=== PATIENT | female | born 1940 | race Caucasian/White ===

== ENCOUNTER 2017-10-26 20:19 | Observation (INO) | payer MEDICARE ==
[~2017-10-26] VITALS: Ht 162.6 cm; Wt 57.5 kg
[~2017-10-26 20:19] MED LIST: CLOBETASOL0.053 EX; FLEXERIL OR; NAPROSYN500 MG PO; SYNTHROID88 MCG PO
--- NOTE | 2017-10-26 20:34 | NUR ---
PT AMBULATED TO ER ROOM 13 WITH DAUGHTER. CHANGED INTO GOWN.
--- NOTE | 2017-10-26 20:36 | NUR ---
pt arrived in room. no obvious distress noted. Wearing mask. Family with patient
--- NOTE | 2017-10-26 20:50 | NUR ---
awaiting provider for evaluation.
[2017-10-26 21:45] LABS: HEMATOCRIT 35.9 % (37.0-47.0); IMMATURE GRANULOCYTES 0.7 % (0.0-1.0); MEAN CELL VOLUME 93.7 fL CALC (80.0-100.0); MEAN CORPUSCULAR HGB 31.3 pG CALC (26.0-32.0); MEAN CORPUSCULAR HGB CONC 33.4 g/L CALC (32.0-36.0); NEUT# 10.52 thou/uL (2.00-7.15); RED BLOOD COUNT 3.83 mill/uL (4.20-5.60); RED CELL DISTRI WIDTH 12.5 % (11.5-15.5)
[2017-10-26 21:57] LABS: ALBUMIN 4.4 g/dL (3.2-5.0); ALKALINE PHOSPHATASE 89 u/l (38-126); ANION GAP 16 (6-22 (CALC)); BILIRUBIN, TOTAL 0.3 mg/dL (0.0-1.4); BUN 12 mg/dL (8-23); BUN/CREATININE RATIO 15 (12-20 (CALC)); CARBON DIOXIDE 28 mmol/l (22-30); CHLORIDE 95 mmol/l (95-108); CREATININE 0.8 mg/dL (0.5-1.0); GFR > 60 ML/MIN (>=60 (CALC)); GFR FOR AFR.AMER. > 60 ML/MIN (>=60 (CALC)); POTASSIUM 4.5 mmol/l (3.5-5.1); SGOT/AST 29 u/l (9-36); SGPT/ALT 29 u/l (11-66); SODIUM 133 mmol/l (137-146); TOTAL PROTEIN 7.9 g/dL (6.3-8.2)
[2017-10-26 21:59] LABS: INFLUENZA A NONE DETECTED (NONE DETECT); INFLUENZA B NONE DETECTED (NONE DETECT)
[2017-10-26 22:35] LABS: TSH, 3RD GENERATION 5.86 uIU/mL (0.47 - 4.68)
--- NOTE | 2017-10-26 23:56 | NUR ---
Pt resting comfortably at this time. Daughter is leaving. Awaiting room assignment.
[2017-10-27 00:30] VITALS: BP 125/71
--- NOTE | 2017-10-27 00:30 | NUR ---
PATIENT ARRIVED TO THE FLOOR IN STABLE CONDITION VIA STRETCHER AND ACCOMPANIED BY ED NURSE. PATIENT SETTLED TO BED AND ORIENTED TO ROOM CALL SYSTEM. PATIENT IS ALERT AND ORIENTED. BED IN LOW POSITION AND CALL LIGHT IN REACH.
[2017-10-27 01:55] LABS: URINE BILIRUBIN - DIPSTICK NEGATIVE (NEGATIVE); URINE BLOOD DIPSTICK NEGATIVE (NEGATIVE); URINE CLARITY SL CLOUDY; URINE COLOR YELLOW; URINE GLUCOSE - DIPSTICK NEGATIVE (NEGATIVE); URINE KETONE NEGATIVE (NEGATIVE); URINE LEUK ESTERASE NEGATIVE (NEGATIVE); URINE NITRITE - DIPSTICK NEGATIVE (Negative); URINE PROTEIN - DIPSTICK NEGATIVE (NEG-TRACE); URINE UROBILINOGEN - DIPSTICK 0.2 E.U./dL (0.2)
[2017-10-27 04:00] VITALS: BP 122/68
--- NOTE | 2017-10-27 04:00 | NUR ---
NO APPARENT ACUTE CHANGES NOTED IN PATIENT'S CONDITION.
--- NOTE | 2017-10-27 07:00 | NUR ---
RECEIVED BEDSIDE REPORT FROM ELADIO GUEVARA. RESTING IN SEMI FOWLERS WITH EYES CLOSED, AWAKENS EASILY. RESPS EVEN AND UNLABORED ON ROOM AIR. VOICES NO NEEDS AT THIS TIME. PLAN OF CARE DISCUSSED. SAFETY PRECAUTIONS REINFORCED. BED IN LOWEST POSITION WITH WHEELS LOCKED. CALL LIGHT WITHIN REACH. ENCOURAGED PT TO CALL FOR ANY NEEDS.
[2017-10-27 07:10] VITALS: BP 119/68
--- NOTE | 2017-10-27 07:10 | NUR ---
PT ALERT, ORIENTED X3. SPEECH CLEAR. FACE SYMMETRICAL. PT HAS HISTORY OF CATARACT SURGERY. PUPILS SLIGHTLY REACTIVE TO LIGHT. PUPILS ROUND. SKIN INTACT, WARM AND DRY. PT HAS STRONG UPPER AND LOWER EXTREMITIES. STRONG APICAL, RADIAL, PEDAL PULSES. GOOD CAPILLARY REFILL. NO SKIN TURGOR. LUNG SOUNDS CLEAR. RESPIRATIONS EVEN AND UNLABORED. ACTIVE BOWEL SOUNDS. PT STATES NO PAIN AT THIS TIME. BED IN LOWEST POSITION. SIDE RAILS UP. CALL LIGHT WITHIN REACH. WILL CONTINUE TO MONITOR.
[2017-10-27] MEDS ORDERED: TIMOLOL 0.5%5 ML OU (09:29)
[2017-10-27 09:38] LABS: HEMATOCRIT 35.2 % (37.0-47.0); HEMOGLOBIN 11.8 g/dl (12.0-16.0); IMMATURE GRANULOCYTES 0.5 % (0.0-1.0); MEAN CELL VOLUME 94.9 fL CALC (80.0-100.0); MEAN CORPUSCULAR HGB 31.8 pG CALC (26.0-32.0); MEAN CORPUSCULAR HGB CONC 33.5 g/L CALC (32.0-36.0); NEUT# 10.1 thou/uL (2.00-7.15); RED BLOOD COUNT 3.71 mill/uL (4.20-5.60); RED CELL DISTRI WIDTH 12.6 % (11.5-15.5)
--- NOTE | 2017-10-27 10:25 | NUR ---
SITTING IN BEDSIDE CHAIR. RESPS EVEN AND UNLABORED ON ROOM AIR. C/O DRY COUGH. MEDICATED WITH ROBITUSSIN PO FOR COMFORT. CALL LIGHT WITHIN REACH. WILL CONTINUE TO MONITOR.
--- NOTE | 2017-10-27 12:00 | NUR ---
SITTING IN BEDSIDE CHAIR EATING LUNCH. RESPS EVEN AND UNLABORED ON ROOM AIR. REPORTS FEELING MUCH BETTER. CALL LIGHT WITHIN REACH. WILL CONTINUE TO MONITOR.
[2017-10-27 13:35] LABS: ANION GAP 16 (6-22 (CALC)); BUN 9 mg/dL (8-23); BUN/CREATININE RATIO 14 (12-20 (CALC)); CARBON DIOXIDE 24 mmol/l (22-30); CHLORIDE 95 mmol/l (95-108); CREATININE 0.7 mg/dL (0.5-1.0); GFR > 60 ML/MIN (>=60 (CALC)); GFR FOR AFR.AMER. > 60 ML/MIN (>=60 (CALC)); POTASSIUM 4.2 mmol/l (3.5-5.1); SODIUM 130 mmol/l (137-146)
--- NOTE | 2017-10-27 15:25 | NUR ---
SITTING IN BEDSIDE CHAIR. RESPS EVEN AND UNLABORED ON ROOM AIR. DENIES PAIN OR DISCOMFORT. DR NELSON AT BEDSIDE, NEW ORDERS RECEIVED. CALL LIGHT WITHIN REACH. ENCOURAGED PT TO CALL FOR ANY NEEDS.
--- NOTE | 2017-10-27 15:38 | NUR ---
Visited pt room during rounding. Pt states that she is feeling a lot better, cough medicine and DuoNebs have really helped as her cough is relieved some. Pt had no questions or concerns about medcations.
[2017-10-27 15:47] VITALS: BP 138/81
[2017-10-27] MEDS ORDERED: MEDDOSEPAK PO (17:01)
[2017-10-27] MEDS ORDERED: LEVAQUIN750 MG PO (17:01)
--- NOTE | 2017-10-27 17:15 | NUR ---
IV site discontinued, cath intact. No edema , no redness, voices no discomfort.
--- NOTE | 2017-10-27 18:55 | NUR ---
Discharge instructions given. Patient verbalizes understanding of same. Discharged in stable condition via Ambulatory to Home with family. All belongings sent with pt.
== END 2017-10-27 18:52 | disposition home or self-care (01) ==
LOC: ED 20:19 → ED-I 23:00 → ED 23:53 → MS2 23:54
PROVIDERS: Emergency Medicine; Nurse Practitioner Family; ADMIT Internal Medicine; ATTEND Internal Medicine
DX: J18.9 Pneumonia, unspecified organism (principal); E03.9 Hypothyroidism, unspecified; I10 Essential (primary) hypertension; E87.1 Hypo-osmolality and hyponatremia; H40.9 Unspecified glaucoma; H35.30 Unspecified macular degeneration